=== PATIENT | male | born 1975 | race Caucasian/White ===

== ENCOUNTER 2019-08-04 08:03 | Emergency (ER) | payer BC, OTHER ==
[2019-08-04] MEDS: Lidocaine 1% 5ml 10 MG/ML VIAL IJ ONE (08:20)
--- NOTE | 2019-08-04 08:41 | ED Physician Documentation ---
General Adult - HISTORIAN Historian: patient - HPI Chief Complaint: General Adult Onset: days ago (7) Further Comments: yes (44 year old male patient presents with left knee edema, erythema and pain x 1 week. 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 Reports drainage last night. Is out of his daily lisinopril. Requesting refill.) - ROS CONST: no problems EYES/ENT: none CVS/RESP: none GI/: none MS/SKIN/LYMPH: none NEURO/PSYCH: denies: headache - PAST HX Past History: hypertension Other History: diabetes Type 2, other (depression, Hx MRSA, ) Allergies/Adverse Reactions: Allergies Allergy/AdvReac Type Severity Reaction Status Date / Time sulfamethoxazole Allergy Blister Verified 08/04/19 08:18 [From Bactrim] trazodone Allergy Verified 08/04/19 08:18 trimethoprim [From Bactrim] Allergy Blister Verified 08/04/19 08:18 Home Medications: Ambulatory Orders Medication Instructions Recorded Buprenorphine HCl/Naloxone HCl 1 tab PO HS 08/04/19 [Buprenorphin-Naloxon 8-2 mg Sl] Buprenorphine HCl/Naloxone HCl 2 tab SL AM 08/04/19 [Buprenorphin-Naloxon 8-2 mg Sl] Bupropion HCl [Wellbutrin Xl] 450 mg PO DAILY 08/04/19 Buspirone HCl [Buspar] 15 mg PO TID 08/04/19 Clindamycin HCl 300 mg PO QID #40 capsule 08/04/19 Hydroxyzine Pamoate [Vistaril] 50 mg PO TID PRN 08/04/19 Insulin Glargine,Hum.rec.anlog 60 unit SUBCUT AM 08/04/19 [Lantus] Insulin Lispro [Humalog Kwikpen 12 units SUBCUT AC15 08/04/19 U-100] Lisinopril 40 mg PO DAILY #30 tablet 08/04/19 Lisinopril [Prinivil] 40 mg PO DAILY 08/04/19 Quetiapine Fumarate 50 mg PO HS 08/04/19 - SOCIAL HX Smoking History: cigarettes - FAMILY HX Family History: No - REVIEWED ASSESSMENTS Nursing Assessment Reviewed: Yes Vitals Reviewed: Yes Procedures Site: Left knee Blade Size: 11 I & D Procedure: betadine prep Progress: Location: left knee Wound cleaned with betadine and NS; anesthetized with Lidocaine 1% - patient tolerated well. Small amount of purulent serosangenous drainage. Dressing applied. Patient tolerated well. Progress - Progress Progress: Refilled patient's lisinopril as requested. Out of his medication x 3 days ED Results Lab/Radiology - Orders Orders: ED Orders Category Date Time Status WOUND CULTURE Stat Lab 08/04/19 Ordered Clindamycin Phosphate [Cleocin] Med 08/04/19 08:35 Once 300 mg IM NOW ONE Lidocaine 1% 5ml [Xylocaine] Med 08/04/19 08:22 Discontinued 50 mg IJ NOW ONE General Adult Physical Exam - PHYSICAL EXAM GENERAL APPEARANCE: mild distress EENT: eye inspection normal, ROSS RESPIRATORY: no resp distress CVS: reg rate & rhythm SKIN: warm/dry, normal color, other (left knee with moderate amount erythema, edema. 2 cm area of white blister like tissue noted over patella with scab. Firm 4 cm area over patella. Scant drainage. Hyperthermia noted. ) EXTREMITIES: edema (left knee) NEURO: oriented X3, motor nml, sensation nml, mood/affect nml Discharge Clincal Impression: Abscess of left knee Clincal Impression: (Ruled Out): Abscess of right knee Prescriptions: Clindamycin HCl 300 mg PO QID #40 capsule Lisinopril 40 mg PO DAILY #30 tablet Referrals: Primary Doctor,No [Primary Care Provider] - 2 Days Additional Instructions: Keep the wound clean and dry until it has healed. You can wash or shower after 24 hours. Do not soak the wound in water and make sure it is dry after bathing (gently pat the area dry with a clean towel). Do not get into a swimming pool, hot tub, sanches or river until your stitches are removed. To remove your dressing, gently pull it off. If needed, you can dampen it with water then gently pull it off. Clean the laceration twice a day with hibiclens and rinse with water clean away any scabbed area Cover with non-adherent bandage if able. If you have pain, take simple pain relief medication such as Tylenol or ibuprofen. If bandages or dressings get wet, they will need to be changed. 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 Make a follow up appointment with your primary care doctor for re-evaluation this week. Condition: Stable Disposition: 01 HOME, SELF-CARE Decision to Admit: NO Decision Time: 08:41
[2019-08-04] MEDS: CLINDAMYCIN PHOSPHATE 900 MG/6 ML VIAL IM ONE (08:43)
[2019-08-04 09:16] VITALS: BP 132/87
== END 2019-08-04 09:12 | disposition home or self-care (01) ==
LOC: ED 08:03
DX: L02.416 Cutaneous abscess of left lower limb (principal)
CPT/HCPCS: 10060; 87070; 87186; 96372; 99283; 99284

== ENCOUNTER 2019-08-23 08:11 | Emergency (ER) | payer BC, OTHER ==
[2019-08-23 08:56] LABS: BASOPHILS % 1.1 % (0.0-1.5); NEUTROPHILS # 5.1 # k/uL (1.4-7.7)
[2019-08-23 09:04] LABS: eGFR (Non-African) > 60
[2019-08-23] MEDS: NITROGLYCERIN 0.4 MG TAB.SUBL SL ONE (09:04)
[2019-08-23] MEDS: ASPIRIN 325 MG TABLET PO ONE (09:04)
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
[2019-08-23 09:38] VITALS: BP 129/85
[2019-08-23 11:05] LABS: CANNABINOIDS NON NEGATIVE ng/mL (< 50); METHYLENEDIOXYMETHAMPHETAMINE NEGATIVE ng/mL (<500)
== END 2019-08-23 09:38 | disposition short-term general hospital (02) ==
LOC: ED 08:11
DX: I21.3 ST elevation (STEMI) myocardial infarction of unspecified site (principal); F19.10 Other psychoactive substance abuse, uncomplicated; F17.210 Nicotine dependence, cigarettes, uncomplicated
CPT/HCPCS: 80053; 80377; 84484; 85025; 99283; A9270; 93005; G0481; S1016

== ENCOUNTER 2019-10-19 12:39 | Emergency (ER) | payer BC, OTHER ==
[2019-10-19 13:03] VITALS: BP 159/91
[2019-10-19] MEDS ORDERED: KETOROLAC TROMETHAMINE 60 MG/2 ML VIAL IM ONE (13:33)
--- NOTE | 2019-10-19 13:35 | ED Physician Documentation ---
Ear Complaints - HISTORIAN Historian: patient - HPI Stated Complaint: left ear pain Chief Complaint: Ear Complaints Timing: worse Location of Pain: L ear Severity: severe Associated Symptoms: dull pain. denies: fever, chills, discharge, hearing loss, trauma to ear, headache, neck pain, motions sickness Further Comments: yes (44 year old male presents with left ear pain since Sunday; denies fever or chills; took ibuprofen yesterday with no relief. Reports frequent use of THC and methamphetimes.) - ROS CONST: no problems CVS/RESP: none GI/: denies: black stools, nausea, vomiting, other MS/SKIN/LYMPH: none NEURO/PSYCH: none All Systems -: Yes - PAST HX Past History: none Allergies/Adverse Reactions: Allergies Allergy/AdvReac Type Severity Reaction Status Date / Time sulfamethoxazole Allergy Blister Verified 10/19/19 13:02 [From Bactrim] trazodone Allergy Verified 10/19/19 13:02 trimethoprim [From Bactrim] Allergy Blister Verified 10/19/19 13:02 Home Medications: Ambulatory Orders Medication Instructions Recorded Buprenorphine HCl/Naloxone HCl 2 tab SL AM 08/04/19 [Buprenorphin-Naloxon 8-2 mg Sl] Bupropion HCl [Wellbutrin Xl] 450 mg PO DAILY 08/04/19 Buspirone HCl [Buspar] 15 mg PO TID 08/04/19 Clindamycin HCl 300 mg PO QID #40 capsule 08/04/19 Hydroxyzine Pamoate [Vistaril] 50 mg PO TID PRN 08/04/19 Insulin Glargine,Hum.rec.anlog 60 unit SUBCUT AM 08/04/19 [Lantus] Insulin Lispro [Humalog Kwikpen 12 units SUBCUT AC15 08/04/19 U-100] Lisinopril 40 mg PO DAILY #30 tablet 08/04/19 Quetiapine Fumarate 50 mg PO HS 08/04/19 - SOCIAL HX Smoking History: cigarettes Alcohol Use: none Drug Use: marijuana, methamphetamines - FAMILY HX Family History: No - VITAL SIGNS Vital Signs: Vital Signs Temp Pulse Resp BP Pulse Ox 98.3 F 77 20 159/91 96 10/19/19 12:59 10/19/19 12:59 10/19/19 12:59 10/19/19 12:59 10/19/19 12:59 - REVIEWED ASSESSMENTS Nursing Assessment Reviewed: Yes Vitals Reviewed: Yes ED Results Lab/Radiology - Orders Orders: ED Orders Category Date Time Status Ketorolac Tromethamine [Toradol] Med 10/19/19 13:33 Once 60 mg IM NOW ONE Ear Complaint Physical Exam - EXAM General Appearance: mild distress Ear: auricle nml, pain w movement of auricl, left, erythema (Left canal), swelling of canal (Left canal), TM's nml. No: cerumen, discharge Mouth/Throat: lips nml, gums nml, pharynx nml Nose: nml inspection Head/Neck: atraumatic Eye: eyes nml inspection, PERRL Resp/CVS: no resp. distress, reg. rate & rhythm Skin: nml color, no skin rash Neuro/Psych: oriented x3 Discharge Clincal Impression: Otitis externa Qualifiers: Otitis externa type: diffuse Chronicity: acute Laterality: left Qualified Code( s): H60.312 - Diffuse otitis externa, left ear Referrals: Primary Doctor,No [Primary Care Provider] - 2 Days Additional Instructions: Put a piece of cotton in your ear when you shower. A prescription for ear drops has been sent to the pharamacy Tylenol 650-1000mg every 4 hours as needed for pain with Ibuprofen 600-800 mg every 6 hours See your primary care doctor if your symptoms become worse or do not resolve in 7 days. Condition: Stable Disposition: 01 HOME, SELF-CARE Decision to Admit: NO Decision Time: 13:33
== END 2019-10-19 13:44 | disposition home or self-care (01) ==
LOC: ED 12:39
DX: H60.312 Diffuse otitis externa, left ear (principal)
CPT/HCPCS: 96372; 99284; J1885

== ENCOUNTER 2019-10-20 12:17 | Emergency (ER) | payer BC, OTHER ==
[2019-10-20 12:41] VITALS: BP 136/80
--- NOTE | 2019-10-20 12:43 | ED Physician Documentation ---
General Adult - HISTORIAN Historian: patient - HPI Stated Complaint: neck pain Chief Complaint: General Adult Onset: days ago Timing: still present Severity: moderate Further Comments: yes (Pt is a 44 yo male with c/o neck pain. Pt was seen here yesterday with L ear pain and was rx'd antibiotic ear drop. Pt continues to have ear pain as well as R-sided neck pain. He says that he cannot turn his head to the R. Pt lives in homeless nursing home, [facility].) - ROS CONST: no problems, other (malaise) EYES/ENT: other (L ear pain) CVS/RESP: none GI/: none MS/SKIN/LYMPH: other (R-sided neck pain) - PAST HX Past History: other (HTN, HLD, CAD) Allergies/Adverse Reactions: Allergies Allergy/AdvReac Type Severity Reaction Status Date / Time sulfamethoxazole Allergy Blister Verified 10/20/19 12:41 [From Bactrim] trazodone Allergy Verified 10/20/19 12:41 trimethoprim [From Bactrim] Allergy Blister Verified 10/20/19 12:41 Home Medications: Ambulatory Orders Medication Instructions Recorded Buprenorphine HCl/Naloxone HCl 2 tab SL AM 08/04/19 [Buprenorphin-Naloxon 8-2 mg Sl] Bupropion HCl [Wellbutrin Xl] 450 mg PO DAILY 08/04/19 Buspirone HCl [Buspar] 15 mg PO TID 08/04/19 Clindamycin HCl 300 mg PO QID #40 capsule 08/04/19 Hydroxyzine Pamoate [Vistaril] 50 mg PO TID PRN 08/04/19 Insulin Glargine,Hum.rec.anlog 60 unit SUBCUT AM 08/04/19 [Lantus] Insulin Lispro [Humalog Kwikpen 12 units SUBCUT AC15 08/04/19 U-100] Lisinopril 40 mg PO DAILY #30 tablet 08/04/19 Quetiapine Fumarate 50 mg PO HS 08/04/19 Neomycin/Polymyxin B/Hydrocort 4 drop OT QID #1 bottle 10/19/19 [Cortisporin Otic] Amoxicillin/Potassium Clav 1 each PO Q12H #20 tablet 10/20/19 [Augmentin 875-125 Tablet] - SOCIAL HX Smoking History: cigarettes Drug Use: marijuana, methamphetamines - FAMILY HX Family History: No - VITAL SIGNS Vital Signs: Vital Signs Temp Pulse Resp BP Pulse Ox 98.0 F 96 H 20 136/80 96 10/20/19 12:30 10/20/19 12:30 10/20/19 12:30 10/20/19 12:30 10/20/19 12:30 - REVIEWED ASSESSMENTS Nursing Assessment Reviewed: Yes Vitals Reviewed: Yes Progress - Progress Progress: Diazepam 5 mg IM x 2 Toradol 30 mg IM x 1 improved for otitis media Rx Augmentin (875/125). Take one every 12 hours for 10 days. Prior to discharge pt requested methadone, which is not available at this facility, believing it would relieve his pain. Pt became angry that we would not provide this. General Adult Physical Exam - PHYSICAL EXAM GENERAL APPEARANCE: moderate distress EENT: pharynx normal, TM erythema (L) NECK: other (R-sided muscle spasm) RESPIRATORY: no resp distress, chest non-tender, breath sounds normal CVS: reg rate & rhythm, heart sounds normal ABDOMEN: soft, no organomegaly, normal bowel sounds BACK: normal inspection, no CVA tenderness SKIN: warm/dry, normal color EXTREMITIES: non-tender, normal range of motion, no evidence of injury NEURO: oriented X3, motor nml, sensation nml Discharge Clincal Impression: R ear pain, L-sided neck pain, spasm Prescriptions: Amoxicillin/Potassium Clav [Augmentin 875-125 Tablet] 1 each PO Q12H #20 tablet Referrals: Primary Doctor,No [Primary Care Provider] - Condition: Stable Disposition: 01 HOME, SELF-CARE Decision to Admit: NO Decision Time: 13:52
[2019-10-20] MEDS ORDERED: KETOROLAC TROMETHAMINE 30 MG/1ML VIAL IM ONE ×2 (12:47→13:47)
== END 2019-10-20 15:05 | disposition home or self-care (01) ==
LOC: ED 12:17
DX: H92.01 Otalgia, right ear (principal); M54.2 Cervicalgia
CPT/HCPCS: 96372; 99284; J1885; J3360

== ENCOUNTER 2019-11-04 10:33 | Outpatient (CLI) | payer BC, OTHER ==
--- NOTE | 2019-11-04 12:46 | Diagnostic Imaging Report ---
PATIENT MR#: [id number] PATIENT PATIENT NAME: VILMA FERNNADES DATE OF : 1975 REFERRING PHYSICIAN: Lois Heard EXAM DATE: 11/04/2019 ACCESSION NUMBER: [id number] EXAM DESCRIPTION: C SPINE 4 VIEWS OR MORE HISTORY: CERVICALGIA COMPARISON: No relevant comparison is available at the time of interpretation. C-SPINE XRAY, 9 views including obliques and flexion-extension: Vertebral bodies: No compression deformities. The dens is intact and the lateral masses are symmetric . Disc spaces: Mild degenerative disc disease at C4-5 and C5-6. Alignment: Reversal of the normal cervical lordosis. Normal physiologic anterior translation of C3 ov er C4, and C4 over C5 in flexion. Neural foramina: Mild bilateral neural foraminal narrowing C3-4, C4-5 and C5-6. IMPRESSION: 1. Reversal of the normal lordosis which may indicate paraspinal muscle spasm. 2. Degenerative disc disease more pronounced at C4-5 and C5-6. 3. Bilateral neural foraminal narrowing at C3-4, C4-5 and C5-6 Read by: Dr. Jay Arana Transcribed by: Jay Arana Transcribed Date: 11/04/2019 12:45:30 PM Electronically signed by: Dr. Jay Arana Date signed: 11/04/2019 12:46:07 PM
--- NOTE | 2019-11-05 13:20 | CONSULTATION REPORT ---
DATE OF CONSULTATION: 11/04/2019 CHIEF COMPLAINT: Neck pain. HISTORY OF PRESENT ILLNESS: Mr. Goldberg is a 44-year-old male patient here for evaluation of neck pain. His pain has been present for the last three to four months and progressive in nature. It is right-sided, constant, aching to sharp if he turns his head. He denies radiation, numbness, tingling, arm weakness, difficulty ambulating or any urinary or bowel symptoms. His pain is worse with neck range of motion and improved with heat packs. He has tried [id number] anti-inflammatories without any improvement. The patient has not had any recent physical therapy, participated in a home exercise program or had personal care aide to treat his symptoms. The patient has not had any imaging done, either. The patient has a history of opioid dependency and is currently on Suboxone. He tells me he has been using dextromethorphan as an adjunct for his pain. PAST MEDICAL HISTORY: Includes alcoholism, back pain, chemical/drug dependency, stage I liver cirrhosis, depression, type 2 diabetes mellitus. He had a heart attack earlier this year which he tells me was stress-induced cardiomyopathy. 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 Hypertension, hyperlipidemia, hypertriglyceridemia. He did have a suicide attempt this year. He has a history of TMJ and neck pain. PAST SURGICAL HISTORY: Includes surgical repair of testicular torsion in 1992 and a repaired right femur fracture in 2006. SOCIAL HISTORY: Marital status is single. Occupation is disabled. Tobacco use is current, one pack per day x 27 years. ETOH is former abuse. Recreational drug abuse is current opiates x 20 years, last use was today. FAMILY HISTORY: Mother had asthma and hypertension, father heart disease and a sibling with diabetes. DRUG ALLERGIES: Include Bactrim which causes hives and trazodone which causes priapism. CURRENT MEDICATIONS: Lantus 62 units each h.s., Humalog 20 units each day with meals, Suboxone 24 mg per day sublingual, lisinopril 5 mg one p.o. b.i.d., metoprolol 25 mg one p.o. b.i.d., aspirin 81 mg one p.o. q.day, Lyrica 150 mg one p.o. b.i.d., 25 mg one p.o. q.day, nitroglycerine 0.4 mg one sublingual p.r.n. chest pain, Wellbutrin 450 mg one p.o. q.day, buspirone 15 mg one p.o. q.day and hydroxizine 50 mg one p.r.n. p.o. q.day. REVIEW OF SYSTEMS: A complete 14-point review of systems was completed and all negative except for the following: CV: Shortness of breath with activity. GI: Positive for cirrhosis stage I. : Positive for difficult urination, frequent urination and erectile difficulties. Psychiatric: Positive for past suicidal thoughts and suicidal attempts. Current psychiatric counseling. Musculoskeletal: Positive for neck pain and low back pain. OBJECTIVE: General: This is an obese male patient presenting in [facility]. Vital Signs: He is 6 feet 1 inch tall, weighs 271 pounds. Temperature is 97.4, pulse is 77, respiratory rate is 18, blood pressure 142/86 with an SaO2 of 96% on room air. He is rating his pain a 4/10 today. Psych: He is alert and oriented x 3. He has somewhat of a flat affect; however, he is appropriate and cooperative. HEENT: He is normocephalic and atraumatic. Pupils are equal and round without miosis. Sclerae clear. Trachea midline. No lymphadenopathy or thyromegaly. CV: Normal S1, S2. Regular, rate and rhythm. No gallops, murmurs, or rubs. Pulmonary: Clear to auscultation bilaterally and throughout. GI: Abdomen is round, soft, nondistended and nontender with bowel sounds present in all four quadrants. : Deferred. Musculoskeletal: The patient is limited in cervical flexion and extension with end-range pain. The patient is restricted in cervical rotation bilaterally as well as cervical lateral bending bilaterally with end-range pain. There is tenderness to palpation about the right C3-4, C4-5 levels as well as cervical paraspinal tenderness to palpation on the right. The patient is very tight through his bilateral trapezius muscles. Spurling's bilaterally is negative. Bilateral upper extremity strength is graded 5/5 in elbow flexion, elbow extension, wrist flexion, wrist extension, finger abduction and finger adduction. Marketing Analytics Manager are equal and strong as well. Neurologic: Cranial nerves II through XII are grossly intact. Bilateral upper extremities sensation is intact to light touch. Deep tendon reflexes are 2+ in bilateral upper extremities. ASSESSMENT: Cervicalgia. PLAN: 1. I am going to obtain cervical x-ray series with flexion, extension and odontoid views. 2. I am ordering physical therapy to evaluate and treat. The frequency and duration is at the therapist's discretion. 3. I have prescribed the patient diclofenac 50 mg one p.o. t.i.d., dispense #90 with two refills. 4. I have provided the patient with Flexeril 10 mg one p.o. one to two times per day p.r.n. muscle spasms, #30 with no refills. 5. We will consider referral for evaluation for [facility] if fails physical therapy. 6. The patient can follow up in one month or sooner if needed. The patient verbalizes understanding and agrees to the current treatment plan. TOMA Marinelliurse Practitioner /[employer] [id number] Job #[id number] cc: Darci Schwartz MD MTDD
== END 2019-11-04 11:33 ==
LOC: OUT 10:33
PROVIDERS: ATTEND Nurse Practitioner Adult Health
DX: M54.2 Cervicalgia (principal)
CPT/HCPCS: 72050; 99203